=== PATIENT | female | born 1985 | race African-American/Black ===

== ENCOUNTER 2016-09-22 20:51 | Emergency (ER) | payer OTHER ==
[~2016-09-22] VITALS: Ht 162.6 cm; Wt 108.9 kg
[2016-09-22 21:42] LABS: BILIRUBIN,URINE NEGATIVE (NEG); GLUCOSE,URINE NEGATIVE (NEG); NITRITE,URINE NEGATIVE (NEG); PROTEIN,URINE NEGATIVE (NEG-TRACE)
[2016-09-22 21:49] LABS: BACTERIA,URINE FEW /HPF (0-FEW); RBC,URINE 0 /HPF (0-2); SQUAMOUS EPITHELIAL CELL,UR MOD /LPF
--- NOTE | 2016-09-22 22:25 | RAD ---
PROCEDURE Obstetric ultrasound less than 14 weeks HISTORY Low back pain, TECHNIQUE Transabdominal and transvaginal transducers with grayscale, M-mode Doppler and duplex Doppler sonography COMPARISON No recent prior, last sonogram was September 05, 2015 FINDINGS Transabdominal imaging demonstrates a single living intrauterine fetus with crown-rump length 5.2 centimeters estimating gestational age 12 weeks 0 days and heart rate 153 beats per minute. No subchorionic hemorrhage. Left ovary measures 2.0 x 2.8 x 1.7 centimeters with a 1 centimeter corpus luteum or follicle. Intact left ovarian blood flow. Right ovary not visualized. Transvaginal imaging demonstrates no shortening or funneling of the cervix the length was not measured by the wooden shade hardware installer however on the saved image the length is at least 3.8 centimeters. Single living intrauterine fetus again demonstrated with crown-rump length 5.2 centimeters gestational age 12 weeks 0 days and heart rate 153 beats per minute. Estimated date of delivery sonographically April 06, 2017. No subchorionic hemorrhage. IMPRESSION Single living intrauterine fetus estimated sonographic gestational age of 12 weeks 0 days. Electronically signed by: Hardeep Ragland MD (September 22, 2016 22:24:04)
[2016-09-22 22:31] LABS: BASO % 1 % (0-3); EOS % 1 % (0-3); HEMATOCRIT 32.8 % (36.0-47.0); HEMOGLOBIN 11.2 g/dL (12.0-15.5); LYMPH # 3.4 x10^3/uL (1.0-4.8); LYMPH % 36 % (24-48); MEAN CORPUSCULAR HEMOGLOBIN 29 pg (25-35); MEAN CORPUSCULAR HGB CONC 34 g/dL (31-37); MEAN CORPUSCULAR VOLUME 85 fL (79-100); MONO % 8 % (0-9); NEUT % 55 % (31-73); PLATELET COUNT 272 x10^3/uL (140-400); RED BLOOD COUNT 3.85 x10^6/uL (3.50-5.40); RED CELL DISTRIBUTION WIDTH 13.5 % (11.5-14.5); WHITE BLOOD COUNT 9.4 x10^3/uL (4.0-11.0)
[2016-09-22 22:43] LABS: CALCIUM 8.9 mg/dL (8.5-10.1); CREATININE 0.7 mg/dL (0.6-1.0); GFR 118.1; POTASSIUM 3.5 mmol/L (3.5-5.1)
[2016-09-22 22:49] LABS: ALBUMIN 2.9 g/dL (3.4-5.0); ALBUMIN/GLOBULIN RATIO 0.7 (1.0-1.7); TOTAL BILIRUBIN 0.1 mg/dL (0.2-1.0); TOTAL PROTEIN 6.8 g/dL (6.4-8.2)
[2016-09-22] MEDS ORDERED: CEPH-264 PO (22:52)
--- NOTE | 2016-09-22 22:52 | PHYS DOC ---
Past Medical History Past Medical History: No Pertinent History Past Surgical History: Other Additional Past Surgical Histo: d&C x 2 Alcohol Use: None Drug Use: None Adult General Chief Complaint Chief Complaint: ABDOMINAL PAIN IN HPI HPI Patient is a 30 year old female who is 2 para 0 presents here today complaining of lower pelvic pain as well as back pain. Patient reports that she is approximately 12 weeks by dates. Patient's last menstrual period is July 03. Patient denies any fevers shakes chills. Patient denies any diarrhea. Patient per she is nauseous and had a couple episodes of emesis. Patient has a dysuria frequency urgency or vaginal bleeding. Patient does have a history of diabetes. Patient has any hypertension CHF or COPD. Patient has not had any abdominal surgeries in the past. Patient portion does smoke to see her today she was advised to stop smoking. There is no alcohol or drugs. Patient allergic to any medications. Patient's physical exam is pertinent for some mild tenderness to palpation to her lower back. Patient has mild tenderness to palpation to her suprapubic region. Patient's abdominal exam is soft nondistended no rebound or guarding. Patient does not present with any signs or symptoms of be concerning for an acute surgical abdomen. Patient does have normal active bowel sounds. Patient's ER workup was significant for normal labs. Patient ultrasound that showed a live 12 week IUP. Patient feels significantly improved after hearing that the baby is doing well. Patient feels comfortable to be discharged A/P #1 abdominal pain. Patient is clinically and hemodynamically stable for discharged home. I discussed with the patient that whenever anybody has abdominal pain during that was concerned about potential for a miscarriage. Patient was instructed to return to the ER if the pain worsens or if she has any vaginal bleeding. Patient is otherwise to follow-up with her primary care physician for further evaluation. #2. Urinary tract infection. Patient is . Patient will be sent home on cephalexin 500 4 times a day 5 days. Review of Systems Review of Systems Constitutional: Denies fever or chills [] Eyes: Denies change in visual acuity, redness, or eye pain [] All other review systems are negative except as documented in the history of present illness portion. Allergies Allergies Allergies Coded Allergies Type Severity Reaction Last Updated Verified No Known Drug Allergies 09/05/15 No Physical Exam Physical Exam Constitutional: Well developed, well nourished, no acute distress, non-toxic appearance. [] HENT: Normocephalic, atraumatic, bilateral external ears normal, oropharynx moist, no oral exudates, nose normal. [] Eyes: PERRLA, EOMI, conjunctiva normal, no discharge. [] Neck: Normal range of motion, no tenderness, supple, no stridor. [] Cardiovascular:Heart rate regular rhythm, no murmur [] Lungs & Thorax: Bilateral breath sounds clear to auscultation [] Abdomen: Bowel sounds normal, soft, no tenderness, no masses, no pulsatile masses. [] Skin: Warm, dry, no erythema, no rash. [] Back: No tenderness, no CVA tenderness. [] Extremities: No tenderness, no cyanosis, no clubbing, ROM intact, no edema. [] Neurologic: Alert and oriented X 3, normal motor function, normal sensory function, no focal deficits noted. [] Psychologic: Affect normal, judgement normal, mood normal. [] Current Patient Data Vital Signs Vital Signs Date Time Temp Pulse Resp B/P (MAP) Pulse Ox O2 Delivery O2 Flow Rate FiO2 09/22/16 22:05 91 17 115/60 (78) 96 Room Air 09/22/16 21:05 98.0 98.0 Lab Values Laboratory Tests Test 09/22/16 21:10 09/22/16 22:15 Urine Collection Type Unknown Urine Color Yellow Urine Clarity Clear Urine pH 6.0 Urine Specific [place] 1.025 Urine Protein Negative mg/dL (NEG-TRACE) Urine Glucose (UA) Negative mg/dL (NEG) Urine Ketones (Stick) Negative mg/dL (NEG) Urine Blood Negative (NEG) Urine Nitrite Negative (NEG) Urine Bilirubin Negative (NEG) Urine Urobilinogen Dipstick 1.0 mg/dL (0.2 mg/dL) Urine Leukocyte Esterase Moderate (NEG) Urine RBC 0 /HPF (0-2) Urine WBC 5-10 /HPF (0-4) Urine Squamous Epithelial Cells Mod /LPF Urine Amorphous Sediment Present /HPF Urine Bacteria Few /HPF (0-FEW) Urine Mucus Slight /LPF White Blood Count 9.4 x10^3/uL (4.0-11.0) Red Blood Count 3.85 x10^6/uL (3.50-5.40) Hemoglobin 11.2 g/dL (12.0-15.5) L Hematocrit 32.8 % (36.0-47.0) L Mean Corpuscular Volume 85 fL (79-100) Mean Corpuscular Hemoglobin 29 pg (25-35) Mean Corpuscular Hemoglobin Concent 34 g/dL (31-37) Red Cell Distribution Width 13.5 % (11.5-14.5) Platelet Count 272 x10^3/uL (140-400) Neutrophils (%) (Auto) 55 % (31-73) Lymphocytes (%) (Auto) 36 % (24-48) Monocytes (%) (Auto) 8 % (0-9) Eosinophils (%) (Auto) 1 % (0-3) Basophils (%) (Auto) 1 % (0-3) Neutrophils # (Auto) 5.2 x10^3uL (1.8-7.7) Lymphocytes # (Auto) 3.4 x10^3/uL (1.0-4.8) Monocytes # (Auto) 0.7 x10^3/uL (0.0-1.1) Eosinophils # (Auto) 0.1 x10^3/uL (0.0-0.7) Basophils # (Auto) 0.0 x10^3/uL (0.0-0.2) Sodium Level 139 mmol/L (136-145) Potassium Level 3.5 mmol/L (3.5-5.1) Chloride Level 105 mmol/L (98-107) Carbon Dioxide Level 26 mmol/L (21-32) Anion Gap 8 (6-14) Blood Urea Nitrogen 12 mg/dL (7-20) Creatinine 0.7 mg/dL (0.6-1.0) Estimated GFR (Cockcroft-Gault) 118.1 BUN/Creatinine Ratio 17 (6-20) Glucose Level 82 mg/dL (70-99) Calcium Level 8.9 mg/dL (8.5-10.1) Total Bilirubin Pending Aspartate Amino Transferase (AST) Pending Alanine Aminotransferase (ALT) Pending Alkaline Phosphatase Pending Total Protein Pending Albumin Pending Albumin/Globulin Ratio Pending Laboratory Tests 09/22/16 22:15 Laboratory Tests 09/22/16 22:15 EKG EKG [] Radiology/Procedures Radiology/Procedures [] Course & Med Decision Making Course & Med Decision Making Pertinent Labs and Imaging studies reviewed. (See chart for details) [] Dragon Disclaimer Dragon Disclaimer This electronic medical record was generated, in whole or in part, using a voice recognition dictation system. Departure Departure Impression: Primary Impression: Abdominal pain affecting Additional Impression: Threatened miscarriage Disposition: HOME, SELF-CARE Condition: IMPROVED Referrals: NO PCP (PCP) Patient Instructions: Abdominal Pain During , - Urinary Tract Infection, Threatened Miscarriage, [id number] Scripts Cephalexin (KEFLEX) 500 Mg Capsule 500 MG PO QID for 10 Days, CAP Prov: PATRICIO HOLLINGSWORTH MD 09/22/16 Problem Qualifiers PATRICIO HOLLINGSWORTH MD September 22, 2016 22:52
[2016-09-22 23:10] VITALS: BP 123/60
== END 2016-09-22 23:13 | disposition home or self-care (01) ==
LOC: ER 20:51
DX: O20.0 Threatened abortion (principal); O23.41 Unspecified infection of urinary tract in pregnancy, first trimester; O24.911 Unspecified diabetes mellitus in pregnancy, first trimester; O99.331 Smoking (tobacco) complicating pregnancy, first trimester; Z98.890 Other specified postprocedural states; Z3A.12 12 weeks gestation of pregnancy
CPT/HCPCS: 36415; 76801; 80053; 81001; 84702; 85027; 86900; 86901; 87086; 99285-25

== ENCOUNTER 2018-02-20 00:03 | Emergency (ER) | payer OTHER ==
[~2018-02-20] VITALS: Ht 160 cm; Wt 111.1 kg
[~2018-02-20 00:03] MED LIST: CEPH-264 PO
[2018-02-20 00:58] LABS: BASO # 0.1 x10^3/uL (0.0-0.2); BASO % 1 % (0-3); EOS # 0.1 x10^3/uL (0.0-0.7); EOS % 0 % (0-3); HEMATOCRIT 35.7 % (36.0-47.0); HEMOGLOBIN 11.6 g/dL (12.0-15.5); LYMPH # 4.3 x10^3/uL (1.0-4.8); LYMPH % 36 % (24-48); MEAN CORPUSCULAR HEMOGLOBIN 26 pg (25-35); MEAN CORPUSCULAR HGB CONC 33 g/dL (31-37); MEAN CORPUSCULAR VOLUME 80 fL (79-100); MONO % 9 % (0-9); NEUT # 6.5 x10^3uL (1.8-7.7); NEUT % 54 % (31-73); PLATELET COUNT 383 x10^3/uL (140-400); RED BLOOD COUNT 4.44 x10^6/uL (3.50-5.40); RED CELL DISTRIBUTION WIDTH 16.7 % (11.5-14.5); WHITE BLOOD COUNT 11.9 x10^3/uL (4.0-11.0)
[2018-02-20 01:18] LABS: ALBUMIN 3.7 g/dL (3.4-5.0); ALBUMIN/GLOBULIN RATIO 0.8 (1.0-1.7); CALCIUM 9.7 mg/dL (8.5-10.1); GFR 77.3; TOTAL BILIRUBIN 0.4 mg/dL (0.2-1.0); TOTAL PROTEIN 8.4 g/dL (6.4-8.2)
[2018-02-20 01:24] LABS: PREG TEST PT QUAL NEGATIVE (NEG)
[2018-02-20 01:32] LABS: POTASSIUM 2.9 mmol/L (3.5-5.1)
[2018-02-20] MEDS ORDERED: POTASSIUM CHLORIDE 20 MEQ TABLET.ER. PO ONE (02:45)
--- NOTE | 2018-02-20 02:50 | RAD ---
Chest AP portable at 1248: Reason for examination: Chest pain. Comparison is made to previous study dated 07/17/2015. The heart size is normal. Mediastinum is unremarkable. Lung lazo are clear. No acute bony abnormalities are seen. Impression: No acute cardiopulmonary disease. Electronically signed by: Hien Barbosa MD (02/20/2018 2:47 AM) [id number]
[2018-02-20] MEDS ORDERED: IOHEXOL 300 MG/ML 100ML VIAL. IV ONE (03:30)
[2018-02-20] MEDS ORDERED: CONTRAST GIVEN. MC PRN (03:30)
--- NOTE | 2018-02-20 03:55 | RAD ---
CT angiogram of the chest with contrast: Reason for examination: Chest pain. Helical images were obtained through the chest with intravenous administration of 75 cc Omnipaque 300 using PE protocol. 3-D MIPS reconstruction was performed in sagittal and coronal planes. Exposure: One or more of the following individualized dose reduction techniques were utilized for this examination: 1. Automated exposure control 2. Adjustment of the mA and/or kV according to patient size 3. Use of iterative reconstruction technique. The thyroid gland shows some heterogeneity at the left lobe which may reflect presence of cysts. Trachea and mainstem bronchi show no intraluminal lesions. No abnormality seen at the esophagus. The thoracic aorta shows no aneurysmal dilatation or dissection. The heart size is normal with no pericardial effusion. Pulmonary embolus is not evident. The lung lazo show no infiltrates, pleural effusions or pneumothorax. No abnormality seen at the liver, spleen or adrenal glands. No acute bony abnormalities are evident. IMPRESSION: No pulmonary embolus. No acute abnormality in the chest. Electronically signed by: Hien Barbosa MD (02/20/2018 3:52 AM) [place] [id number]
[2018-02-20] MEDS ORDERED: POTA20TA82 PO (04:20)
--- NOTE | 2018-02-20 04:21 | PHYS DOC ---
Past Medical History Past Medical History: No Pertinent History Past Surgical History: Other Additional Past Surgical Histo: d&C x 2, UMBILICAL HERNIA Alcohol Use: Occasionally Drug Use: None Adult General Chief Complaint Chief Complaint: CHEST PAIN HPI HPI Patient is a 32 year old female presents with chest wall pain, described as sharp, worse with deep breathing and movement. Symptom onset was several hours prior to ED arrival. No nausea vomiting. No fevers chills. No abdominal pain, urinary frequency urgency. No leg pain or swelling. No history of DVT or PE. No other acute symptoms or complaints. [] Review of Systems Review of Systems Review of symptoms as per history of present illness. All other review symptoms are negative. All other systems were reviewed and found to be within normal limits, except as documented in this note. Current Medications Current Medications Current Medications Medications (Trade) Dose Ordered Sig/Denilson Start Time Stop Time Status Last Admin Dose Admin Info (CONTRAST GIVEN -- Rx MONITORING) 1 each PRN DAILY PRN 02/20/18 03:30 02/22/18 03:29 Iohexol (Omnipaque 300 Mg/ml) 75 ml 1X ONCE 02/20/18 03:30 02/20/18 03:31 DC 02/20/18 03:43 75 ML Potassium Chloride (Klor-Con) 40 meq 1X ONCE 02/20/18 02:45 02/20/18 02:46 DC 02/20/18 03:14 40 MEQ Allergies Allergies Allergies Coded Allergies Type Severity Reaction Last Updated Verified No Known Drug Allergies 09/05/15 No Physical Exam Physical Exam Constitutional: Well developed, well nourished, no acute distress, non-toxic appearance. [] HENT: Normocephalic, atraumatic, bilateral external ears normal, oropharynx moist, no oral exudates, nose normal. [] Eyes: PERRLA, EOMI, conjunctiva normal, no discharge. [] Neck: Normal range of motion, no tenderness, supple, no stridor. [] Cardiovascular:Heart rate regular rhythm, no murmur [] Lungs & Thorax: Bilateral breath sounds clear to auscultation [] Abdomen: Bowel sounds normal, soft, no tenderness. [] Skin: Warm, dry, no erythema, no rash. [] Back: No tenderness, no CVA tenderness. [] Extremities: No tenderness, no cyanosis, no clubbing, ROM intact, no edema. [] Neurologic: Alert and oriented, normal motor function, normal sensory function, no focal deficits noted. [] Psychologic: Affect normal, judgement normal, mood normal. [] Current Patient Data Vital Signs Vital Signs Date Time Temp Pulse Resp B/P (MAP) Pulse Ox O2 Delivery O2 Flow Rate FiO2 02/20/18 00:17 98.5 117 22 192/96 (128) 100 Room Air 98.5 Lab Values Laboratory Tests Test 02/20/18 00:20 White Blood Count 11.9 x10^3/uL (4.0-11.0) H Red Blood Count 4.44 x10^6/uL (3.50-5.40) Hemoglobin 11.6 g/dL (12.0-15.5) L Hematocrit 35.7 % (36.0-47.0) L Mean Corpuscular Volume 80 fL (79-100) Mean Corpuscular Hemoglobin 26 pg (25-35) Mean Corpuscular Hemoglobin Concent 33 g/dL (31-37) Red Cell Distribution Width 16.7 % (11.5-14.5) H Platelet Count 383 x10^3/uL (140-400) Neutrophils (%) (Auto) 54 % (31-73) Lymphocytes (%) (Auto) 36 % (24-48) Monocytes (%) (Auto) 9 % (0-9) Eosinophils (%) (Auto) 0 % (0-3) Basophils (%) (Auto) 1 % (0-3) Neutrophils # (Auto) 6.5 x10^3uL (1.8-7.7) Lymphocytes # (Auto) 4.3 x10^3/uL (1.0-4.8) Monocytes # (Auto) 1.0 x10^3/uL (0.0-1.1) Eosinophils # (Auto) 0.1 x10^3/uL (0.0-0.7) Basophils # (Auto) 0.1 x10^3/uL (0.0-0.2) D-Dimer (Sarah) 0.94 ug/mlFEU (0.00-0.50) H Sodium Level 141 mmol/L (136-145) Potassium Level 2.9 mmol/L (3.5-5.1) *L Chloride Level 101 mmol/L (98-107) Carbon Dioxide Level 27 mmol/L (21-32) Anion Gap 13 (6-14) Blood Urea Nitrogen 11 mg/dL (7-20) Creatinine 1.0 mg/dL (0.6-1.0) Estimated GFR (Cockcroft-Gault) 77.3 BUN/Creatinine Ratio 11 (6-20) Glucose Level 129 mg/dL (70-99) H Calcium Level 9.7 mg/dL (8.5-10.1) Total Bilirubin 0.4 mg/dL (0.2-1.0) Aspartate Amino Transferase (AST) 16 U/L (15-37) Alanine Aminotransferase (ALT) 18 U/L (14-59) Alkaline Phosphatase 92 U/L (46-116) Total Protein 8.4 g/dL (6.4-8.2) H Albumin 3.7 g/dL (3.4-5.0) Albumin/Globulin Ratio 0.8 (1.0-1.7) L Lipase 208 U/L (73-393) Serum Test, Qualitative Negative (NEG) Laboratory Tests 02/20/18 00:20 Laboratory Tests 02/20/18 00:20 EKG EKG [EKG: Reviewed] Radiology/Procedures Radiology/Procedures [Chest x-ray/CTA chest: No acute disease per radiology report] Course & Med Decision Making Course & Med Decision Making Pertinent Labs and Imaging studies reviewed. (See chart for details) [Atypical chest pain resolved with treatment. Potassium replaced. No other acute symptoms or complaints. Potassium replaced.] Dragon Disclaimer Dragon Disclaimer This electronic medical record was generated, in whole or in part, using a voice recognition dictation system. Departure Departure Impression: Primary Impression: Chest pain Additional Impression: Hyperkalemia Disposition: 01 HOME, SELF-CARE Condition: GOOD Referrals: UNKNOWN PCP NAME (PCP) Patient Instructions: Chest Pain (Nonspecific), Hypokalemia-Brief Additional Instructions: Your evaluated emergency department for chest pain. EKG lab and imaging were obtained. The cause of your symptoms has not been determined. Your potassium level was found to be low. Please take Potassium as directed and follow-up with your PCP in 3-5 days for reevaluation. Return to the ED if new or worsening symptoms. Scripts Potassium Chloride (POTASSIUM CHLORIDE) 20 Meq Tablet.er 20 MEQ PO DAILY for 3 Days, #3 TAB.SR Prov: PRERNA MANUEL DO 02/20/18 Problem Qualifiers PRERNA MANUEL DO Feb 20, 2018 04:21
[2018-02-20 04:30] VITALS: BP 155/64
--- NOTE | 2018-02-20 13:16 | EKG ---
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
== END 2018-02-20 04:38 | disposition home or self-care (01) ==
LOC: ER 00:03
DX: R07.1 Chest pain on breathing (principal); E87.5 Hyperkalemia
CPT/HCPCS: 36415; 71045; 71275; 80053; 83690; 84703; 85025; 85379; 93005; 99285; Q9967